=== PATIENT | male | born 2005 | race Two or more races ===

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

== ENCOUNTER → 2024-02-21 10:29 | Outpatient (BNVA) | payer SELFPAY | PROVIDERS: PCP Pediatrics; Visit Provider Physician Assistant Medical | DX: Z02.1 Encounter for pre-employment examination (principal) ==

== ENCOUNTER 2024-06-24 15:21 | Emergency (ER) | payer OTHER, SELFPAY ==
[2024-06-24 19:14] VITALS: BP 143/65; PULSE 68; RESP 16; TEMP 36.9; O2SAT 99; BMI 31.8
[2024-06-24] MEDS: Doxycycline Monohydrate 100 MG CAPSULE PO (19:44)
--- NOTE | 2024-06-24 19:56 | ED_ITS ---
HPI - Skin/Abscess/Foreign Bdy General Chief complaint: Skin/Abscess/Foreign Body Stated complaint: Cyst Time Seen by Provider: 06/24/24 19:34 Source: patient and family (Mother) Mode of arrival: ambulatory Limitations: no limitations History of Present Illness ED Provider: DR. Zavaleta HPI narrative: 18-year-old male came in with his mother for evaluation of a cyst and tenderness over tailbone and between the 2 buttock cheeks, pain is worse when he is sitting or laying on his back. No fever, no chills. Related Data Previous Rx's ?Medication ?Instructions ?Recorded doxycycline hyclate 100 mg tablet 100 mg PO BID #20 tabs 06/24/24 Allergies Allergy/AdvReac Type Severity Reaction Status Date / Time No Known Allergies Allergy Verified 06/24/24 19:17 Review of Systems Review of Systems: All other systems are reviewed and are negative Constitutional: Reports as per HPI and Reports no additional constitutional complaints Eyes: Reports as per HPI and Reports no additional eye complaints Reports system reviewed and no additional complaints, except as documented Cardiovascular: Reports as per HPI and Reports no additional cardiovascular complaints Respiratory: Reports as per HPI and Reports no additional respiratory complaints Gastrointestinal: Reports as per HPI and Reports no additional gastrointestinal complaints Genitourinary: Reports no additional female genitourinary complaints Musculoskeletal: Reports no additional musculoskeletal complaints Skin/Breast: Reports system reviewed and no additional complaints, except as docu Psychiatric: Reports no additional psychiatric complaints Endocrine: Reports no additional endocrine complaints Hematologic/Lymphatic: Reports no additional hematologic/lymphatic complaints Allergic/Immunologic: Reports no additional allergic/immunologic complaints Reports system reviewed and no additional complaints, except as documented and Reports Abnormal speech present [facility] Social History Social History Smoked in Last 30 Days: No Use of substances other than those prescribed or required for medical reasons: No Advance Directives: No Advance Directives Information Provided: No Do you have a plan to hurt others: No Plan Physical Exam Vital Signs: Vital Signs: Last Vital Signs Temp 98.4 F 06/24/24 19:14 Pulse 68 06/24/24 19:14 Resp 16 06/24/24 19:14 BP 143/65 H 06/24/24 19:14 Pulse Ox 99 06/24/24 19:14 O2 Del Method Room Air 06/24/24 19:14 BMI result Body Mass Index 31.8 Vital signs have been reviewed and appear to be correct. Blood pressure elevated. Heart rate normal. Respiratory rate normal. Temperature normal. Oxygen saturation normal. Appearance: Alert. Oriented X3. No acute distress. Head: Normal external exam. Normocephalic. Atraumatic. No [place] signs noted. No raccoon eyes noted Eyes: PERRLA. EOMI. Conjunctiva and sclera normal. Eyelids normal. ENT: TM's Normal. Pharynx normal. Uvula midline. Moist mucous membranes. No trismus noted. No drooling noted. No muffled voice noted. Neck: Normal inspection. Neck supple. FROM. No adenopathy. Thyroid Normal. No meningeal signs. No neck mass noted. CVS: Normal heart rate and rhythm. Heart sound normal. No murmurs noted. Pulses normal throughout. Respiratory: No respiratory distress. Painless inspiration. Breath sounds normal. No wheezes/rales/rhonchi noted. Chest nontender. No accessory muscle usage noted or decreased air movement noted. Abdomen: Soft and nontender. Bowel sounds normal in all 4 quadrants. No distention noted. No organomegaly noted. No visible injury noted. Rectal exam: Mild tenderness over tailbone area, there is no fluctuation or abscess is appreciated, no discharge. Back: No CVA tenderness. Full range of motion noted. Skin: Skin warm and dry. Normal skin color. Normal skin turgor. No rashes/lesions/lacerations noted. Extremities: No lower extremity edema. Extremities exhibit normal range of motion. Extremities nontender. Neuro: Oriented X 3. Cranial nerve exam: II-XII are grossly intact No motor deficit. No sensory deficit. Reflexes normal. Course Reevaluation(s) Reevaluation #1: Early pilonidal cyst infection versus abscess, physical exam revealed no fluctuation with no significant pus accumulation. Patient was given the option of I and D versus start up antibiotic and monitor himself for the next couple days if symptoms get worse to return to the ED for further evaluation and consider I and D. Patient opted to try the course of antibiotic use Sitz bath. Time: 20:00 Medications Administered Discontinued Medications Generic Name Dose Route Start Last Admin Trade Name Freq PRN Reason Stop Dose Admin Doxycycline Monohydrate 100 mg 06/24/24 19:40 06/24/24 19:44 Doxycycline Monohydrate 100 Mg Capsule PO 06/24/24 19:41 100 mg ONCE ONE Administration Medical Decision Making Differential Diagnosis Differential Diagnoses: The differential diagnosis associated with the presentation includes (Pilonidal cyst inflammation, pilonidal cyst abscess.) Admission/Observation Consideration of admission/observation: Escalation of care including admission/observation considered Discharge Plan Discharge Clinical Impression: Pilonidal cyst Patient Disposition: Home, Self-Care Instructions: Pilonidal Cyst (ED) Additional Instructions: Take the antibiotic as prescribed. Do frequent warm Sitz bath. If the pain persist or worsening or notice any increase in the size of the cyst please seek medical attention for open and drain the cyst. Prescriptions: New doxycycline hyclate 100 mg tablet 100 mg PO BID Qty: 20 0RF Print Language: Korean
[2024-06-24 20:38] VITALS: BP 143/65; PULSE 68; RESP 16; TEMP 36.9; O2SAT 99
== END 2024-06-24 20:41 | disposition home or self-care (01) ==
PROVIDERS: Emergency Provider Emergency Medicine
DX: L05.91 Pilonidal cyst without abscess (principal)
CPT/HCPCS: 99283; 99284

== ENCOUNTER → 2025-02-27 09:22 | Outpatient (BNVA) | payer SELFPAY | PROVIDERS: Visit Provider Emergency Medicine | DX: Z02.1 Encounter for pre-employment examination (principal) ==